=== PATIENT | female | born 1950 | race Caucasian/White ===

== ENCOUNTER → 2022-10-29 | Day surgery (SDC) | payer MEDICARE ==
[~2022-10-29] MED LIST: ERTAPENEM 1 GM in SODIUM CHLORIDE 0.9% 50 ML IVPB STA
== END ==
LOC: CATHCVL 10:05
PROVIDERS: ATTEND Internal Medicine
DX: R07.89 Other chest pain (principal)
CPT/HCPCS: 36410; 76937; C1751; J1335

== ENCOUNTER → 2022-12-01 | Outpatient (CLI) | payer MEDICARE, OTHER ==
--- NOTE | 2022-12-03 08:40 | CT ---
EXAMINATION TYPE: CT abdomen pelvis wo con DATE OF EXAM: 12/01/2022 COMPARISON: None INDICATION: Lt. Flank pain. DLP: 413.7 mGycm, Automated exposure control for dose reduction was used. CONTRAST: 0 mL of Isovue 300. Study performed without Oral Contrast TECHNIQUE: Axial images were obtained from above the diaphragm to the pubic rami in the axial plane a t 5 mm thick sections. Reconstructed images are reviewed on the computer in the coronal plane. FINDINGS: Limited CT sections are obtained the lung bases. The lung bases are clear. There is a moderate size hiatal hernia present. Epigastric surgical clips are present. Prior gastric sleeve surgery may be pr esent. CT ABDOMEN: Liver: Normal Spleen: Normal Pancreas: Normal Adrenal glands: 1.9 cm thickening through the left adrenal gland. Right adrenal gland appears normal. Gallbladder: Surgically absent Kidneys: No masses are evident. No hydronephrosis is present. No cysts are present. Multiple upper pole nonobstructing renal stones are present. These measure up to 0.5 cm. Some of these are likely r elated to vascular calcification. Aorta: Vascular calcification is within the aorta. Inferior vena cava: Normal. CT PELVIS: Fecal debris is seen in the colon. No suspicious dilated small bowel loops are evident. There is a sm all anterior abdominal wall hernia containing a nonobstructed loop of bowel which appears to be part of the transverse colon. Scattered diverticuli within the sigmoid colon. Left upper quadrant bowel yarbrough rgery is evident. This study is performed without oral contrast limiting bowel evaluation. Appendix: Not identified. No dilated tubular structure or inflammatory changes evident. Urinary bladder: Normal. Genitourinary structures: Uterus and ovaries are not identified. Osseous structures: There is a sclerotic area within the right femoral head may be a small bone islan d. Meningioma appears to be within L4. Punctate bone islands may be within the L3 and L2 vertebral james dies on the right. IMPRESSIONS: 1. Calcifications are in the upper poles of the bilateral kidneys. Some of these may be related to v ascular calcification. Nonobstructing renal stones may also be present. No hydronephrosis or hydroure ter is evident. 2. Anterior abdominal wall hernia containing a nonobstructed loop of transverse colon. 3. Diverticulosis without acute diverticulitis. 4. Mild thickening of the left adrenal gland. 5. Moderate-sized hiatal hernia
== END | disposition home or self-care (01) ==
LOC: RADCTMAIN 14:40
PROVIDERS: ATTEND Urology
DX: N20.0 Calculus of kidney (principal); K43.9 Ventral hernia without obstruction or gangrene; K44.9 Diaphragmatic hernia without obstruction or gangrene; K57.30 Diverticulosis of large intestine without perforation or abscess without bleeding; E27.8 Other specified disorders of adrenal gland; N39.0 Urinary tract infection, site not specified
CPT/HCPCS: 74176